=== PATIENT | female | born 1990 | race African-American/Black ===

== ENCOUNTER 2023-09-27 15:16 | Emergency (ER) | payer SELFPAY ==
[2023-09-27 15:25] VITALS: BP 164/116
[2023-09-27 15:28] VITALS: BP 164/116; PULSE 94; RESP 20; TEMP 36.9; O2SAT 100
--- NOTE | 2023-09-27 15:31 | ED.GENADULT ---
HPI - General Adult General Chief complaint: Extremity Problem,Nontraumatic Stated complaint: Right Hip/Leg Pain Source: patient Mode of arrival: ambulatory Limitations: no limitations History of Present Illness HPI narrative: 33 y/o female presented for c/o right leg pain x1 month. States pain starts in the right lower back, radiates into the hip and down to the foot with occasional tingling. Denies fall/injury. Has been able to reduce the pain with NSAIDs but yesterday the pain was worse than ever. Pt also admits not taking BP meds. Denies chest pain, palpitation, headache, dizziness etc.. Related Data Allergies Allergy/AdvReac Type Severity Reaction Status Date / Time No Known Allergies Allergy Verified 09/27/23 15:18 Review of Systems Review of Systems: CONSTITUTIONAL: Denies body aches, fever, chills EYES: Denies visual changes CARDIOVASCULAR: Denies chest pain, palpitations, or edema. RESPIRATORY: Denies cough or dyspnea. SKIN: Denies rash, itching, or wounds. MUSCULOSKELETAL: reports back/leg pain NEUROLOGIC: Denies headache All systems reviewed & are unremarkable except as noted in HPI and below [facility] Past Medical History Medical History (Updated 09/27/23 @ 15:51 by Brittny Yun, [employer]) HTN (hypertension) Comments At time of signature, I have reviewed and agree with nursing past medical, surgical, social and family history unless otherwise noted. Please see nursing chart for further information. There is no relevant family history pertinent to the presenting complaint Exam Narrative: GENERAL: Well-appearing CHEST: Speaks in full sentences. No respiratory distress. HEART: Regular rate and rhythm. Normal and equal peripheral pulses. MUSC: No Vertebral point tenderness. BLEs with normal strength and sensation, normal range of motion; denies pain with movement. Nontender hips. No open wounds, or obvious deformity; alignment normal, pulse palpable and equal bilaterally, skin warm, dry, pink. Capillary refill less than 3 seconds. Gait steady. SKIN: Warm, dry, no rash. NEURO: Alert and oriented x3. Course Course Emergency Course: Patient is aware of diagnosis, understands and agrees to treatment plan. Anticipatory guidance given. Patient agrees to follow-up as directed and is aware of reasons to seek care at the emergency department. Portions of this record may have been created with voice recognition software Level of Care: Express Care Visit Vital Signs Vital signs: Vital Signs Temperature 98.4 F 09/27/23 15:28 Pulse Rate 94 09/27/23 15:28 Respiratory Rate 20 09/27/23 15:28 Blood Pressure 164/116 H 09/27/23 15:28 Pulse Oximetry 100 09/27/23 15:28 Oxygen Delivery Room Air 09/27/23 15:28 Temperature 98.4 F 09/27/23 15:28 Pulse Rate 94 09/27/23 15:28 Respiratory Rate 20 09/27/23 15:28 Blood Pressure 164/116 H 09/27/23 15:28 Pulse Oximetry 100 09/27/23 15:28 Oxygen Delivery Room Air 09/27/23 15:28 Reviewed Medical Decision Making MDM Narrative Medical decision making narrative: Discussed physical exam findings consistent with sciatica. She is advised close follow-up with PCP regarding the possible need for physical therapy as well as her elevated blood pressure and associated risks of uncontrolled HTN. She states she is not taking her medication. Advised supportive measures and signs/symptoms to go to the ER. Pt is appropriate for outpt treatment and f/u. Differential Diagnosis Differential Diagnosis: Lumbar radiculopathy, sciatica, piriformis syndrome, diskitis, muscle strain, degenerative joint disease, cauda equina Vital Signs Vital Signs: Vital Signs Temperature 98.4 F 09/27/23 15:28 Pulse Rate 94 09/27/23 15:28 Respiratory Rate 20 09/27/23 15:28 Blood Pressure 164/116 H 09/27/23 15:28 Pulse Oximetry 100 09/27/23 15:28 Oxygen Delivery Room Air 09/27/23 15:28 Temperature 98.4 F 09/27/23 15:28 P
== END 2023-09-27 15:50 | disposition home or self-care (01) ==
PROVIDERS: Emergency Provider Nurse Practitioner Family; PCP Physician Assistant
DX: M54.31 Sciatica, right side (principal); I10 Essential (primary) hypertension
CPT/HCPCS: 99213; G0463